=== PATIENT | female | born 1995 | race Caucasian/White ===

== ENCOUNTER 2018-03-23 02:33 | Emergency (ER) | END 2018-03-23 06:09 | disposition home or self-care (01) ==

== ENCOUNTER 2019-01-16 23:13 | Emergency (ER) | payer OTHER ==
[~2019-01-16] VITALS: Ht 154.9 cm; Wt 75.0 kg
[~2019-01-16 23:13] MED LIST: HYDR-4011 PO; NAPR-688 PO; ONDA4TAB14 PO; PRENAT PO
[2019-01-16 23:18] VITALS: Ht 154.9 cm; Wt 75.0 kg
[2019-01-16] MEDS ORDERED: ONDANSETRON 4 MG INJ IV STA (23:28)
[2019-01-16] MEDS ORDERED: SOD CHLORIDE 0.9% 1,000 ML IV STA (23:28)
[2019-01-16] MEDS ORDERED: KETOROLAC 30 MG INJ IV STA (23:28)
--- NOTE | 2019-01-16 23:37 | ERD ---
ER Documentation Chief Complaint Chief Complaint RUQ PAIN WITH RADIATING TO BACK X 1 DAY, HX OF [place] HPI 23-year-old female with history of previous gallstones present with right upper quadrant pain x1 day radiating to back. Patient notes associated vomiting with 3 episodes of vomiting in the past 24 hours, last episode 1 hour prior to arrival. She rates pain as 10 out of 10, has not taken any medication to alleviate her symptoms prior to arrival. Patient notes to have referral to GI for follow-up regarding cholelithiasis but has not scheduled an appointment. She denies fevers, chills, diarrhea, SOB, diaphoresis. ROS All systems reviewed and are negative except as per history of present illness. CONSTITUTIONAL: Denies fever, Denies chills, Denies general weakness. RESPIRATORY: Denies SOB, Denies cough. CARDIOVASCULAR: Denies chest pain, Denies palpitations GI: Admits to abdominal pain, Admits to nausea, Admits to vomiting. Denies diarrhea. : Denies dysuria, Denies urgency, Denies hematuria NEURO: Denies focal weakness, Denies slurred speech, Denies gait problems PSYCHIATRIC: Denies change mental status, Denies confusion Medications Home Meds Active Scripts Tramadol HCl (Tramadol HCl) 50 Mg Tablet, 50 MG PO Q6 PRN for PAIN, #20 TAB Prov:VIVEK DODGE PA-C 01/17/19 Ciprofloxacin Hcl* (Ciprofloxacin Hcl*) 500 Mg Tablet, 500 MG PO BID for 7 Days, TAB Prov:VIVEK DODGE PA-C 01/17/19 Hydrocodone/Acetaminophen ([place] 5-325 Tablet) 1 Each Tablet, 1 EACH PO Q6 for severe pain, #5 TAB Prov:CHARU WOODS DO 03/23/18 Ondansetron (Ondansetron Odt) 4 Mg Tab.rapdis, 4 MG PO Q6H PRN for NAUSEA AND/OR VOMITING, #10 TAB Prov:CHARU WOODS DO 03/23/18 Naproxen* (Naproxen*) 500 Mg Tablet, 500 MG PO BID PRN for PAIN, #20 TAB Prov:CHARU WOODS DO 03/23/18 Reported Medications Multivit/Min/Fol Ac/Iron/Pren* ( S*) 1 Tab Tab, 1 TAB PO DAILY, TAB 07/01/15 Allergies Allergies: Coded Allergies: No Known Drug Allergies (Verified Allergy, Unknown, 11/21/14) PMhx/Soc History of Surgery: No Anesthesia Reaction: No Hx Neurological Disorder: No Hx Respiratory Disorders: No Hx Cardiac Disorders: No Hx Psychiatric Problems: No Hx Miscellaneous Medical Probl: Yes (dx'd w/ gallstones 1 yr ago) Hx Alcohol Use: Yes (socially ) Hx Substance Use: No Hx Tobacco Use: No Smoking Status: Never smoker FmHx Family History: No diabetes, No coronary disease, No other Physical Exam Vitals Vital Signs Date Temp Pulse Resp B/P (MAP) Pulse Ox O2 O2 Flow FiO2 Time Delivery Rate 01/17/19 98.3 79 16 103/59 Room Air 02:58 (74) 01/16/19 97.6 86 24 170/89 100 23:18 (116) Physical Exam Const: Patient visibly in pain. Head: Atraumatic Eyes: Normal Conjunctiva ENT: Normal External Ears, Nose and Mouth. Neck: Full range of motion. No meningismus. Resp: Clear to auscultation bilaterally. No wheezes, rales, or rhonchi. Cardio: Regular rate, rhythm, no murmurs Abd: Subjective Fitzgerald's as patient is in acute pain and guarding during exam. Right upper quadrant tenderness to palpation, Normal bowel sounds. Abdo men is nondistended and soft. No right lower quadrant tenderness, no rebound tenderness, no McBurney's point tenderness. Negative psoas sign. Skin: No petechiae or rashes Back: No midline or flank tenderness. Positive Right CVA tenderness. Ext: No cyanosis, or edema Neur: Awake and alert Psych: Normal Mood and Affect Result Diagram: 01/16/19 2351 01/16/19 2351 Results 24 hrs Laboratory Tests Test 01/16/19 23:51 01/16/19 23:52 White Blood Count 11.9 10^3/ul Red Blood Count 4.45 10^6/ul Hemoglobin 14.0 g/dl Hematocrit 43.3 % Mean Corpuscular Volume 97.3 fl Mean Corpuscular Hemoglobin 31.5 pg Mean Corpuscular Hemoglobin Concent 32.3 g/dl Red Cell Distribution Width 12.6 % Platelet Count 355 10^3/UL Mean Platelet Volume 10.1 fl Immature Granulocytes % 0.300 % Neutrophils % 77.4 % Lymphocytes % 15.7 % Monocytes % 4.7 % Eosinophils % 1.1 % Basophils % 0.8 % Nucleated Red Blood Cells % 0.0 /100WBC Immature Granulocytes # 0.040 10^3/ul Neutrophils # 9.2 10^3/ul Lymphocytes # 1.9 10^3/ul Monocytes # 0.6 10^3/ul Eosinophils # 0.1 10^3/ul Basophils # 0.1 10^3/ul Nucleated Red Blood Cells # 0.0 10^3/ul Prothrombin Time 12.1 Sec Prothrombin Time Ratio 0.9 INR International Normalized Ratio 0.89 Activated Partial Thromboplast Time 27.4 Sec Urine Color YELLOW Urine Clarity TURBID Urine pH 8.0 Urine Specific [place] 1.020 Urine Ketones NEGATIVE mg/dL Urine Nitrite NEGATIVE mg/dL Urine Bilirubin NEGATIVE mg/dL Urine Urobilinogen NEGATIVE mg/dL Urine Leukocyte Esterase 3+ Brodie/ul Urine Microscopic RBC 15 /HPF Urine Microscopic WBC 48 /HPF Urine Squamous Epithelial Cells MANY /HPF Urine Amorphous Crystals MANY /HPF Urine Mucus FEW /HPF Urine Hemoglobin NEGATIVE mg/dL Urine Glucose NEGATIVE mg/dL Urine Total Protein NEGATIVE mg/dl Sodium Level 140 mmol/L Potassium Level 3.3 mmol/L Chloride Level 102 mmol/L Carbon Dioxide Level 28 mmol/L Anion Gap 10 Blood Urea Nitrogen 8 mg/dl Creatinine 0.59 mg/dl Est Glomerular Filtrat Rate mL/min > 60 mL/min Glucose Level 115 mg/dl Calcium Level 10.1 mg/dl Total Bilirubin 0.4 mg/dl Direct Bilirubin 0.00 mg/dl Indirect Bilirubin 0.4 mg/dl Aspartate Amino Transf (AST/SGOT) 31 IU/L Alanine Aminotransferase (ALT/SGPT) 44 IU/L Alkaline Phosphatase 93 IU/L Total Protein 7.9 g/dl Albumin 4.7 g/dl Globulin 3.20 g/dl Albumin/Globulin Ratio 1.46 Lipase 51 U/L Serum HCG, Qualitative NEGATIVE POC Beta HCG, Qualitative NEGATIVE Current Medications Medications Dose Sig/Travis Start Time Status Last (Trade) Ordered Route PRN Stop Time Admin Dose Reason Admin Sodium 1,000 ml @ Q1H STAT 01/16/19 DC 01/17/19 Chloride 1,000 mls/hr IV 23:28 00:02 01/17/19 00:27 Ondansetron 4 mg ONCE STAT 01/16/19 DC 01/17/19 HCl (Zofran IV 23:28 00:02 Inj) 01/16/19 23:32 Ketorolac 30 mg ONCE STAT 01/16/19 DC 01/17/19 Tromethamine IV 23:28 00:02 (Toradol) 01/16/19 23:32 Morphine 4 mg ONCE STAT 01/17/19 DC 01/17/19 Sulfate IV 01:28 01:34 (morphine) 01/17/19 01:29 Ondansetron 4 mg ONCE STAT 01/17/19 DC 01/17/19 HCl (Zofran IV 01:28 01:33 Inj) 01/17/19 01:29 Ceftriaxone 1 gm ONCE ONCE 01/17/19 DC Sodium IM 02:00 (Rocephin) 01/17/19 02:15 Lidocaine 20 ml ONCE ONCE 01/17/19 DC (Xylocaine INJ 02:00 2% (Mdv) 20 01/17/19 02:15 ml) Ceftriaxone 50 ml @ ONCE ONCE 01/17/19 DC 01/17/19 Sodium 100 mls/hr IVPB 02:30 02:20 01/17/19 02:59 Procedures/MDM PROCEDURE: LIMITED ABDOMINAL ULTRASOUND OF GALL BLADDER FINDINGS: Pancreas: Visualized portions normal. Pancreatic tail is obscured. Liver appearance: Normal. Liver length: 15.9 cm Bile Ducts: No intrahepatic or extrahepatic biliary ductal dilatation. CBD: 0.4 cm. Gallbladder: There is a 2.4 cm stone layering dependently in the gallbladder. Gallbladder is moderately distended. Negative for wall thickening. The ga llbladder wall measures 0.3 cm. Main portal vein is patent with hepatopetal flow. Right kidney length: 10.8 cm. Right kidney appearance: Normal. Other: Superior aorta IVC appear normal. IMPRESSION: Cholelithiasis without evidence of acute cholecystitis or biliary obstruction. MDM: This is a 23yo F with history of cholelithiasis who presents to ED for evaluation of RUQ pain. Pt positive for RUQ pain and right CVA tenderness. No RLQ pain, negative psoas sign. US imaging positive for cholelithiasis without evidence of obstruction or cholecystitis. Labs did not show an elevated lipase or a significant white count. However, pt UA did show 3+ leuks. Given pt CVA tenderness with 3+ leuks, pt was treated for pylo. While in ED pt received IV fluids, Toradol, Morphine, and Rocephin. At time of discharge and re-evaluation pt noted improvement in pain, with minor pain to palpation of the RUQ but no guarding, and in no acute distress. Given improvement in symptoms, stable vitals, and lack of risk factors pt is felt appropriate for discharge with outpatient management at this time. Pt will be discharged home with very short course Tramadol after CURES report revealed no active narcotic prescriptions. Pt is not considered at risk for overdose at this time. Pt will also be discharged with prescription for Cipro to treat pyelo. Pt counseled on ED return preca utions and is to return within 8 hours if symptoms persist or worsen despite treatment. Recommended f/u with PCP in next 1-2 days, as well as scheduled GI consult as previously noted. Pt expressed verbal understanding and agreement to treatment plan. All questions addressed and answered. Departure Diagnosis: Primary Impression: Cholelithiasis Cholelithiasis location: gallbladder Cholecystitis presence: without cholecystitis Biliary obstruction: without biliary obstruction Qualified Codes: K80.20 - Calculus of gallbladder without cholecystitis without obstruction Additional Impression: Pyelonephritis Condition: Stable Patient Instructions: Gallstones, Pyelonephritis VIVEK DODGE PA-C Jan 16, 2019 23:37
[2019-01-17] MEDS ORDERED: ONDANSETRON 4 MG INJ IV STA (01:28)
[2019-01-17] MEDS ORDERED: morphine 4 MG/ML VIAL IV STA (01:28)
[2019-01-17] MEDS ORDERED: TRAM50TA2 PO ×2 (01:52→01:58)
[2019-01-17] MEDS ORDERED: CIPR500T4 PO (01:56)
[2019-01-17] MEDS ORDERED: CEFTRIAXONE 1 GM INJ IM ONE (02:00)
[2019-01-17] MEDS ORDERED: LIDOCAINE 2% (MDV) 20 ML INJ INJ ONE (02:00)
[2019-01-17] MEDS ORDERED: CEFTRIAXONE 1 GM/50 ML (PMX) 50 ML IVPB ONE (02:30)
[2019-01-17 02:58] VITALS: BP 103/59; PULSE 79; RESP 16
== END 2019-01-17 02:58 | disposition home or self-care (01) ==
LOC: FTE 23:13
DX: K80.20 Calculus of gallbladder without cholecystitis without obstruction (principal); N12 Tubulo-interstitial nephritis, not specified as acute or chronic
CPT/HCPCS: 36415; 76705; 80053; 81001; 83690; 84703; 85025; 85610; 85730; 96374; 96375; 96376; J0696; J1885; J2270; J2405; J7030; Z7502; 81025